=== PATIENT | female | born 2000 | race Caucasian/White ===

== ENCOUNTER 2023-05-26 13:37 | Outpatient (REF) | payer MEDICAID, SELFPAY ==
--- NOTE | ~2023-05-26 | US_ITS ---
EXAMINATION: US PELVIS LIMITED/FOLLOW UP CLINICAL INFORMATION: Polycystic ovarian syndrome, last menstrual period March 24, 2023. COMPARISON: None available. TECHNIQUE: Transabdominal ultrasound images of the pelvis were obtained. Transvaginal ultrasound images were not obtained as patient is not sexually active per bobbin winder tender's statement. Limited visualization due to bowel gas. FINDINGS: The uterus measures 9.2 x 2.1 x 3.4 cm. No discrete fibroids are appreciated. Endometrial thickness is 4 mm. Limited visualization of the endometrium. No significant free fluid. Right ovary measures 3.6 x 1.5 x 1.9 cm, volume 5.4 mL. Left ovary measures 2.5 x 1.0 x 2.4 cm, volume 3.1 mL. Bilateral ovaries are grossly unremarkable, although visualization is limited due to bowel gas. Small 0.6 x 0.4 x 0.5 cm cystic area is seen in the region of the lower uterine segment, towards the cervix, difficult to characterize due to limited visualization. US/US pelvic limited IMPRESSION: 1. Endometrial thickness is 4 mm. Limited visualization of the endometrium. 2. Bilateral ovaries are grossly unremarkable, although visualization is limited due to bowel gas. 3. Small 0.6 cm cystic area is seen in the region of the lower uterine segment, towards the cervix, difficult to characterize due to limited visualization. 4. Transvaginal ultrasound images recommended for better visualization.
== END 2023-05-26 13:38 | disposition home or self-care (01) ==
LOC: HO.US 13:37
PROVIDERS: PCP Family Medicine; Visit Provider Family Medicine
DX: E28.2 Polycystic ovarian syndrome (principal)
CPT/HCPCS: 76857

== ENCOUNTER 2023-06-17 11:05 | Outpatient (REF) | payer MEDICAID, SELFPAY ==
[2023-06-17 13:38] LABS: Appearance Urine Cloudy; Color Urine Yellow; Glucose Urine UA Negative (Negative); Leukocyte Esterase Urine Trace (Negative); Nitrite Urine Negative (Negative); UMIC TRIGGER UA YES; Urine Blood Large (3+) (Negative); Urine Ketones Negative (Negative); Urine Protein Trace mg/dL (Neg-Trace)
[2023-06-17 13:41] LABS: Bacteria Urine 1+ (None Seen); Hyaline Casts Urine 0-2 /LPF (0-2); RBC Urine >20 /HPF (0-2)
[2023-06-17 13:58] LABS: Hematocrit 40.4 % (37.0-47.0); Hemoglobin 12.5 g/dl (12.0-16.0); Mean Corpuscular HGB Conc 30.9 g/dl (31.0-35.0); Mean Corpuscular Hemoglobin 25.2 pg (27.0-33.0); Mean Corpuscular Volume 81.3 fL (80.0-98.0); Platelet Count 331 X10*3/uL (160-400); Red Blood Count 4.97 X10*6/uL (4.20-5.50); Red Cell Distribution Width 13.3 % (11.0-16.0); White Blood Count 8.2 X10*3/uL (4.8-10.8)
[2023-06-17 14:25] LABS: Estimated Average Glucose 114 mg/dL; Hemoglobin A1c % 5.6 % (<6.0)
[2023-06-17 16:03] LABS: CT PCR NOT DETECTED (Not Detect.); NG PCR NOT DETECTED (Not Detect.)
[2023-06-17 17:44] LABS: Alanine Aminotransferase 18 U/L (0-31); Albumin Level 4.2 g/dL (3.5-5.0); Alkaline Phosphatase 84 U/L (39-117); Anion Gap 10 (12-20); Aspartate Amino Transferase 17 U/L (5-31); Bilirubin Direct 0.2 mg/dL (0.0-0.5); Bilirubin Total 0.5 mg/dL (0.0-1.0); Blood Urea Nitrogen 11 mg/dL (9-16); Calcium 9.8 mg/dL (8.4-10.2); Carbon Dioxide 29 mmol/L (22-29); Chloride 103 mmol/L (96-108); Cholesterol 160 mg/dL (<200); Estimated Glomerular Filt Rate > 60; Ferritin 12 ng/mL (10-122); Free T4 (Free Thyroxine) 0.92 ng/dL (0.71-1.85); Glucose Random 88 mg/dL (60-115); HDL Cholesterol 50 mg/dL (>40); Iron 30 mcg/dL (30-160); LDL Cholesterol Calculated 93 mg/dL (<100); Percent Iron Saturation 8 % (15-50); Potassium 4.4 mmol/L (3.3-5.1); Sodium 138 mmol/L (135-145); Thyroid Stimulating Hormone 0.64 uIU/mL (0.32-4.0); Total Iron Binding Capacity 381 mcg/dL (228-428); Total Protein 7.6 g/dL (6.5-8.0); Triglycerides 85 mg/dL (<150); Unsaturated Iron Binding 351 ug/dL; Vitamin D 25-OH Total 22.8 ng/mL (>30)
[2023-06-17 19:04] LABS: Folate 6.9 ng/mL (> or = 4.0); Vitamin B12 601 pg/mL (200-900)
[2023-06-18 08:24] LABS: HBS Num1 0.73 mIU/mL (0-7.99); HBsAGNum1 0.36 S/CO (0.00-0.99); HIV AB/AG Nonreactive (Nonreactive); HIV Num 1 0.05 S/CO (0.00-0.99); Hepatitis B Surface Antigen Negative (Negative); ~Hepatitis B Surface Antibody NONREACTIVE (Nonreactive); ~Hepatitis C Antibody Nonreactive (Nonreactive)
[2023-06-19 09:28] LABS: RPR Rapid Plasma Reagin NON-REACTIVE (NON-REACTIVE)
== END 2023-06-17 11:06 | disposition home or self-care (01) ==
LOC: HO.HHCL 11:05
PROVIDERS: Visit Provider Family Medicine
DX: Z00.00 Encounter for general adult medical examination without abnormal findings (principal); Z11.4 Encounter for screening for human immunodeficiency virus [HIV]; Z11.3 Encounter for screening for infections with a predominantly sexual mode of transmission; R53.83 Other fatigue; R82.90 Unspecified abnormal findings in urine
CPT/HCPCS: 0353U; 36415; 80048; 80061; 80076; 81001; 82306; 82607; 82728; 82746; 83036; 83540; 84439; 84443; 85027; 86592; 86706; 86803; 87086; 87340; 87389

== ENCOUNTER 2023-09-26 15:59 | Outpatient (REF) | payer MEDICAID, SELFPAY ==
[2023-09-26 18:01] LABS: CT PCR NOT DETECTED (Not Detect.); NG PCR NOT DETECTED (Not Detect.)
== END 2023-09-26 16:00 | disposition home or self-care (01) ==
LOC: HO.HHCLNP 15:59
PROVIDERS: Visit Provider Family Medicine
DX: Z01.419 Encounter for gynecological examination (general) (routine) without abnormal findings (principal)
CPT/HCPCS: 36415; 87491; 87591; 87625; 88175

== ENCOUNTER 2023-09-29 12:47 | Outpatient (REF) | payer MEDICAID, SELFPAY ==
--- NOTE | ~2023-09-29 | US_ITS ---
EXAMINATION: US PELVIS CLINICAL INFORMATION: Question cyst near cervix on pelvic ultrasound for follow-up evaluation, last menstrual period 09/15/2023. COMPARISON: 05/28/2023 TECHNIQUE: Transabdominal and transvaginal ultrasound images of the pelvis. FINDINGS: The uterus measures 5.9 x 3.1 x 3.2 cm. Endometrial thickness is 0.5 cm. Limited visualization of the endometrium. No significant free fluid. Right ovary measures 1.7 x 1.1 x 1.5 cm, volume 1.5 mL and left ovary 2.7 x 1.1 x 1.1 cm, volume 1.7 mL. The bilateral ovaries were seen only on transabdominal ultrasound images. Bilateral ovaries are grossly unremarkable, although visualization is limited due to bowel gas. Nabothian cysts adjacent to the cervical canal are difficult to characterize due to limited visualization. US/US pelvic and transvaginal IMPRESSION: 1. Endometrial thickness is 0.5 cm. Limited visualization of the endometrium. 2. Bilateral ovaries are grossly unremarkable, although visualization is limited due to bowel gas. Bilateral ovaries were seen only on transabdominal ultrasound images, limiting evaluation. 3. Nabothian cysts adjacent to the cervical canal are difficult to characterize due to limited visualization.
== END 2023-09-29 12:48 | disposition home or self-care (01) ==
LOC: HO.US 12:47
PROVIDERS: PCP Family Medicine; Visit Provider Family Medicine
DX: R93.89 Abnormal findings on diagnostic imaging of other specified body structures (principal); N88.8 Other specified noninflammatory disorders of cervix uteri
CPT/HCPCS: 76830; 76856